=== PATIENT | female | born 1940 | race Caucasian/White ===

== ENCOUNTER 2022-04-23 19:50 | Emergency (ER) | payer MEDICARE, BC ==
[~2022-04-23] VITALS: Ht 152.4 cm; Wt 48.1 kg
--- NOTE | 2022-04-23 20:15 | NUR ---
Patient walked in to ED accompanied by aunt and cousin due to mechanical fall x 3 hours [employer]. Skin tear noted at L face, redness noted on left shoulder and both knees.
--- NOTE | 2022-04-23 20:30 | NUR ---
Seen and examined by Dr. Jeronimo for MSE.
[2022-04-23] MEDS ORDERED: TDAP DIPH,PERTUSS,TET VAC/PF 0.5 ML DISP.SYRIN IM ONE ×2 (21:00→21:06)
--- NOTE | 2022-04-23 21:00 | NUR ---
Lab drawn c/o phleb.
--- NOTE | 2022-04-23 21:12 | NUR ---
Patient taken out for CT scan and xray c/o tech.
[2022-04-23 21:22] LABS: HEMATOCRIT 41.6 % (31.2-41.9); MEAN CORPUSCULAR HEMOGLOBIN 31.1 uug (24.7-32.8); MEAN CORPUSCULAR VOLUME 89.6 fL (75.5-95.3); PLATELET COUNT (AUTO) 288 K/uL (179-408)
--- NOTE | 2022-04-23 21:29 | NUR ---
Patient came back from CT scan.
[2022-04-23 21:32] LABS: ETHANOL < 3 MG/DL (0-0)
--- NOTE | 2022-04-23 21:32 | NUR ---
Ambulated to bathroom with assistance.
[2022-04-23 21:40] LABS: CARBON DIOXIDE 31 mmol/L (21-32); CHLORIDE 97 mmol/L (98-107); CREATININE 0.8 mg/dL (0.6-1.3); GLUCOSE 114 mg/dL (74-106); UREA NITROGEN, BLOOD 9 mg/dL (7-18)
[2022-04-23 21:48] LABS: ALANINE AMINOTRANSFERASE 119 U/L (14-59); ALKALINE PHOSPHATASE 121 U/L (50-136); ASPARTATE AMINOTRANSFERASE 69 U/L (15-37); BILIRUBIN,DIRECT 0.2 mg/dL (0.0-0.2); TOTAL PROTEIN, SERUM 8.5 g/dL (6.4-8.2)
[2022-04-23] MEDS ORDERED: NEOMY/BACITRA/POLYMYXIN B OINT UD PACKET TP ONE (22:26)
--- NOTE | 2022-04-23 22:45 | NUR ---
Cleanse with NS, antibiotic ointment applied, and dressing applied to affected area.
--- NOTE | 2022-04-23 22:49 | NUR ---
Patient discharged to home via private vehicle accompanied by aunt and niece (Jacklyn) in stable condition. VSS. NAD. Ambulatory with steady gait. Written and verbal after care instructions given. Patient verbalizes understanding of instructions. Stressed follow up or return to ER for worsening s/s.
[2022-04-23 22:50] VITALS: BP 140/90
== END 2022-04-23 22:51 | disposition home or self-care (01) ==
LOC: ER 19:54
DX: S00.81XA Abrasion of other part of head, initial encounter (principal); S80.212A Abrasion, left knee, initial encounter; S80.211A Abrasion, right knee, initial encounter; S40.212A Abrasion of left shoulder, initial encounter; W01.0XXA Fall on same level from slipping, tripping and stumbling without subsequent striking against object, initial encounter; Y93.01 Activity, walking, marching and hiking; Y92.480 Sidewalk as the place of occurrence of the external cause; Y99.8 Other external cause status; E78.00 Pure hypercholesterolemia, unspecified; G30.9 Alzheimer's disease, unspecified; F02.81 Dementia in other diseases classified elsewhere, unspecified severity, with behavioral disturbance; Z91.83 Wandering in diseases classified elsewhere; R03.0 Elevated blood-pressure reading, without diagnosis of hypertension
CPT/HCPCS: 36415; 70450; 71045; 84484; 85025; 90715; 93005; A4663; G0480